=== PATIENT | male | born 2000 | race Caucasian/White ===

== ENCOUNTER 2021-09-14 08:13 | Emergency (ER) | payer OTHER ==
[~2021-09-14] VITALS: Ht 157.5 cm; Wt 60.8 kg
[2021-09-14 08:24] VITALS: BP_SYST 127
--- NOTE | 2021-09-14 08:27 | NUR ---
Patient to ER bed 6 to gown for evaluation. Side rails up. Report given to myself Ct FAUST.
--- NOTE | 2021-09-14 08:30 | NUR ---
Pt to bed #6 coming from work amnbualtory with steady gait. Pt is A&Ox4. Pt c/o doing an oil change and burned /cut his right middle and second finger. Rates pain 11/17. NKA. No known medical conditions. VSS. Bed in lowest position.
--- NOTE | 2021-09-14 08:43 | NUR ---
RAINA Rodriguez at bedside examining patient.
[2021-09-14] MEDS ORDERED: DIPH-TET-PERTUS Vaccine 0.5 ML VIAL (ADACEL) I.M. ONE (08:45)
--- NOTE | 2021-09-14 09:16 | NUR ---
X-Ray being done at bedside.
--- NOTE | 2021-09-14 10:23 | NUR ---
Wrapped wound with non-adherent dressing and Acrilex. Pt has no c/o. A&Ox4. VSS.
[2021-09-14 10:26] VITALS: BP_SYST 116
--- NOTE | 2021-09-14 10:28 | NUR ---
Patient given written and verbal discharge instructions and verbalizes understanding. ER MD discussed with patient the results and treatment provided. Patient in stable condition. ID arm band removed. Patient educated on pain management and to follow up with PMD. Pain Scale . Opportunity for questions provided and answered. Medication side effect fact sheet provided.
== END 2021-09-14 10:28 | disposition home or self-care (01) ==
LOC: SED 08:13
DX: S61.240A Puncture wound with foreign body of right index finger without damage to nail, initial encounter (principal); W26.8XXA Contact with other sharp object(s), not elsewhere classified, initial encounter; Y93.89 Activity, other specified; Y92.89 Other specified places as the place of occurrence of the external cause; Y99.8 Other external cause status
CPT/HCPCS: 90715; 99283